=== PATIENT | female | born 1945 | race Caucasian/White ===

== ENCOUNTER → 2016-12-13 | Outpatient (CLI) | payer MEDICARE ==
--- NOTE | 2016-12-13 14:35 | MM ---
Reason for exam: screening (asymptomatic). Last mammogram was performed 1 year ago. History: Patient is postmenopausal. Family history of breast cancer in cousin at age 54. Cyst aspiration of the left breast. Cyst aspiration of the right breast. Took estrogen for 11 years beginning at age 50. Physical Findings: A clinical breast exam by your physician is recommended on an annual basis and results should be correlated with mammographic findings. MG 3D Screening Mammo W/Cad Bilateral CC and MLO view(s) were taken. Prior study comparison: December 09, 2015, bilateral MG 3d screening mammo w/cad. November 14, 2014, bilateral MG screening mammo w CAD. There are scattered fibroglandular densities. There is no discrete abnormality. No significant changes when compared with prior studies. ASSESSMENT: Negative, BI-RAD 1 RECOMMENDATION: Routine screening mammogram of both breasts in 1 year.
== END | disposition home or self-care (01) ==
LOC: RADMAMWWP 09:54
PROVIDERS: ATTEND Obstetrics & Gynecology
DX: Z12.31 Encounter for screening mammogram for malignant neoplasm of breast (principal)
CPT/HCPCS: 77063; G0202

== ENCOUNTER → 2017-04-18 | Outpatient (CLI) | payer MEDICARE ==
--- NOTE | 2017-04-18 16:43 | BD ---
EXAMINATION TYPE: MG DEXA axial skeleton. DATE OF EXAM: 04/18/2017 COMPARISON: NONE CLINICAL HISTORY: 71 year-old female known osteopenia Height: 63 Weight: 149.6 FRAX RISK QUESTIONS: Alcohol (3 or more units per day): no Family History (Parent hip fracture): no Glucocorticoids (More than 3mos): no (Ex: prednisone, prednisolone, methylprednisolone, dexamethasone, and hydrocortisone). History of Fracture in Adulthood: no Secondary Osteoporosis: 1. Type 1 Diabetes: no 2. Hyperthyroidism: no 3. Menopause before 45: yes 4. Malnutrition: no 5. Chronic liver disease: no Rheumatoid Arthritis: no Current Tobacco Use: no RISK FACTORS HISTORY OF: Hip Fracture (Right/Left): no Spine Fracture: no History of Wrist Fracture: no Surgery to Spine/Hip(right/left)/Wrist (right/left): no Family History of Osteoporosis: no Active: yes Diet low in dairy products/other sources of calcium: no Postmenopausal woman: hysterectomy age 30 Lost more than 2 inches in height since high school: no Frequent falls: no Poor Health: no Hyperparathyroidism: no Adrenal Insufficiency: no MEDICATIONS: amiloride, amlodipine, aspirin, zantac, vitamins Additional History: EXAM MEASUREMENTS: Bone mineral densitometry was performed using the [employer] System. Bone mineral density as measured about the Lumbar spine is: ----- L1-L4(G/cm2): 0.900 T Score Values are as follows: ----- L2: -2.6 ----- L3: -2.6 ----- L4: -2.2 ----- L1-L4: -2.3 Bone mineral density has: decreased -3.5 % since study of 01.06.2015 Bone mineral density about the R hip (g/cm2): 0.794 Bone mineral density about the L hip (g/cm2): 0.805 T Score values are as follows: -----R Neck: -1.8 -----L Neck: -1.7 -----R Total: -1.6 -----L Total: -1.6 Bone mineral density has: decreased -1.0 % since study of: 01.06.2015 IMPRESSION: Osteoporosis (T Score less than -2.5) as noted by T Score values averaged between the L2 and L3 verte bra. There is increased fracture risk and therapy is usually indicated based on age. Re-Screen 1-2 years. NOTE: T-SCORE=SD OF THE YOUNG ADULT MEAN.
== END | disposition home or self-care (01) ==
LOC: RADBDWWP 09:19
PROVIDERS: ATTEND Obstetrics & Gynecology
DX: M81.0 Age-related osteoporosis without current pathological fracture (principal)
CPT/HCPCS: 77080

== ENCOUNTER → 2017-12-28 | Outpatient (CLI) | payer MEDICARE ==
--- NOTE | 2018-01-01 08:35 | MM ---
Reason for exam: screening (asymptomatic). Last mammogram was performed 1 year ago. History: Patient is postmenopausal. Family history of breast cancer in cousin at age 54. Cyst aspiration of the left breast. Cyst aspiration of the right breast. Took estrogen for 11 years beginning at age 50. Physical Findings: A clinical breast exam by your physician is recommended on an annual basis and results should be correlated with mammographic findings. MG 3D Screening Mammo W/Cad Bilateral CC and MLO view(s) were taken. Prior study comparison: December 13, 2016, bilateral MG 3d screening mammo w/cad. December 09, 2015, bilateral MG 3d screening mammo w/cad. There are scattered fibroglandular densities. There is chronic nodularity in the left breast. No significant changes when compared with prior studies. ASSESSMENT: Benign, BI-RAD 2 RECOMMENDATION: Routine screening mammogram of both breasts in 1 year.
== END | disposition home or self-care (01) ==
LOC: RADMAMWWP 10:52
PROVIDERS: ATTEND Obstetrics & Gynecology
DX: Z12.31 Encounter for screening mammogram for malignant neoplasm of breast (principal)
CPT/HCPCS: 77063; 77067

== ENCOUNTER → 2019-01-02 | Outpatient (CLI) | payer MEDICARE ==
--- NOTE | 2019-01-03 13:54 | MM ---
Reason for exam: screening (asymptomatic). Last mammogram was performed 1 year ago. History: Patient is postmenopausal. Family history of breast cancer in cousin at age 54. Cyst aspiration of the left breast. Cyst aspiration of the right breast. Took estrogen for 11 years beginning at age 50. Physical Findings: A clinical breast exam by your physician is recommended on an annual basis and results should be correlated with mammographic findings. MG 3D Screening Mammo W/Cad Bilateral CC and MLO view(s) were taken. Prior study comparison: December 28, 2017, bilateral MG 3d screening mammo w/cad. December 13, 2016, bilateral MG 3d screening mammo w/cad. The breast tissue is heterogeneously dense. This may lower the sensitivity of mammography. Benign appearing bilateral calcifications. There is chronic nodularity in the left breast. No significant changes when compared with prior studies. ASSESSMENT: Benign, BI-RAD 2 RECOMMENDATION: Routine screening mammogram of both breasts in 1 year.
== END | disposition home or self-care (01) ==
LOC: RADMAMWWP 11:14
PROVIDERS: ATTEND Obstetrics & Gynecology
DX: Z12.31 Encounter for screening mammogram for malignant neoplasm of breast (principal)
CPT/HCPCS: 77063; 77067

== ENCOUNTER → 2020-01-13 | Outpatient (CLI) | payer MEDICARE ==
--- NOTE | 2020-01-15 08:46 | MM ---
Reason for exam: screening (asymptomatic). Last mammogram was performed 1 year ago. History: Patient is postmenopausal. Family history of breast cancer in cousin at age 54. Cyst aspiration of the left breast. Cyst aspiration of the right breast. Took estrogen for 11 years beginning at age 50. Physical Findings: A clinical breast exam by your physician is recommended on an annual basis and results should be correlated with mammographic findings. MG 3D Screening Mammo W/Cad Bilateral CC and MLO view(s) were taken. Prior study comparison: January 02, 2019, bilateral MG 3d screening mammo w/cad. December 28, 2017, bilateral MG 3d screening mammo w/cad. The breast tissue is heterogeneously dense. This may lower the sensitivity of mammography. No significant changes when compared with prior studies. ASSESSMENT: Negative, BI-RAD 1 RECOMMENDATION: Routine screening mammogram of both breasts in 1 year.
== END | disposition home or self-care (01) ==
LOC: RADMAMWWP 11:45
PROVIDERS: ATTEND Obstetrics & Gynecology
DX: Z12.31 Encounter for screening mammogram for malignant neoplasm of breast (principal)
CPT/HCPCS: 77063; 77067

== ENCOUNTER → 2020-02-13 | Outpatient (CLI) | payer MEDICARE ==
--- NOTE | 2020-02-13 15:39 | BD ---
EXAMINATION TYPE: Axial Bone Density DATE OF EXAM: 02/13/2020 COMPARISON: 04.18.2017 CLINICAL HISTORY: 74 YR OLD FEMALE......ICD-10 CODE: M81.0 OSTEOPOROSIS Height: 61.5 Weight: 145 FRAX RISK QUESTIONS: History of Fracture in Adulthood: YES 3. Menopause before 45: AT 47 RISK FACTORS HISTORY OF: HX OF FOOT FX >50 YRS OLD Postmenopausal woman: YES AT 30 HYST, AT 47 YRS OLD SYMPTOMS Take estrogen and/or progesterone medications: YES IN PAST FOR A FEW YRS, NONE NOW Hyperparathyroidism: NO Adrenal Insufficiency: NO MEDICATIONS: Additional Medications: BP MEDS, REFLUX MEDS, CALCIUM MULTIVITAMIN WITH D Additional History: HYPERTENSION, REFLUX EXAM MEASUREMENTS: Bone mineral densitometry was performed using the [employer] System. Bone mineral density as measured about the Lumbar spine is: ----- L1-L4(G/cm2): 0.935 T Score Values are as follows: ---- L1: -2.4 ----- L2: -2.3 ----- L3: -2.0 ----- L4: -1.8 ----- L1-L4: -2.0 Bone mineral density has: Increased 5.3% SINCE 04.18.2017 STUDY Bone mineral density about the R hip (g/cm2): 0.802 Bone mineral density about the L hip (g/cm2): 0.776 T Score values are as follows: -----R Neck: -2.1 -----L Neck: -1.8 -----R Total: -1.6 -----L Total: -1.8 Bone mineral density has: Decreased -2.7% SINCE 04.18.2017 STUDY FRAX%s: THERE IS A 20.1% CHANCE FOR A MAJOR OSTEOPOROTIC FX AND A 4.4% FOR HIP.....PROBABILITY FOR FX IN 10 YRS TIME IMPRESSION: Osteopenia NOTE: T-SCORE=SD OF THE YOUNG ADULT MEAN.
== END | disposition home or self-care (01) ==
LOC: RADBDWWP 13:16
PROVIDERS: ATTEND Obstetrics & Gynecology
DX: M85.80 Other specified disorders of bone density and structure, unspecified site (principal); M81.0 Age-related osteoporosis without current pathological fracture
CPT/HCPCS: 77080

== ENCOUNTER → 2021-01-26 | Outpatient (CLI) | payer MEDICARE ==
--- NOTE | 2021-01-27 12:03 | MM ---
Reason for exam: screening (asymptomatic). Last mammogram was performed 1 year ago. History: Patient is postmenopausal and has history of other cancer at age 57. Family history of breast cancer in cousin at age 54. Cyst aspiration of the left breast. Cyst aspiration of the right breast. Took estrogen for 11 years beginning at age 50. Physical Findings: A clinical breast exam by your physician is recommended on an annual basis and results should be correlated with mammographic findings. MG 3D Screening Mammo W/Cad Bilateral CC and MLO view(s) were taken. Prior study comparison: January 13, 2020, bilateral MG 3d screening mammo w/cad. January 02, 2019, bilateral MG 3d screening mammo w/cad. The breast tissue is heterogeneously dense. This may lower the sensitivity of mammography. Focal asymmetry central outer left breast zone B. This finding is changed when compared with previous exams. ASSESSMENT: Incomplete: need additional imaging evaluation, BI-RAD 0 RECOMMENDATION: Special view mammogram of the left breast. If lesion persists on supplemental views, image directed ultrasound is recommended. [facility] will attempt to contact patient to return for supplemental views and ultrasound if indicated.
== END | disposition home or self-care (01) ==
LOC: RADMAMWWP 09:55
PROVIDERS: ATTEND Obstetrics & Gynecology
DX: Z12.31 Encounter for screening mammogram for malignant neoplasm of breast (principal); Z78.0 Asymptomatic menopausal state; Z79.818 Long term (current) use of other agents affecting estrogen receptors and estrogen levels; Z85.9 Personal history of malignant neoplasm, unspecified; Z80.3 Family history of malignant neoplasm of breast
CPT/HCPCS: 77063; 77067

== ENCOUNTER → 2021-01-29 | Outpatient (CLI) | payer MEDICARE ==
--- NOTE | 2021-01-29 13:03 | MM ---
Reason for exam: additional evaluation requested from abnormal screening. Last mammogram was performed less than 1 month ago. History: Patient is postmenopausal and has history of other cancer at age 57. Family history of breast cancer in cousin at age 54. Cyst aspiration of the left breast. Cyst aspiration of the right breast. Took estrogen for 11 years beginning at age 50. Physical Findings: Nurse did not find any significant physical abnormalities on exam. MG 3D Work Up W/Cad LT Spot compression CC, spot compression MLO, and ML view(s) were taken of the left breast. Prior study comparison: January 26, 2021, bilateral MG 3d screening mammo w/cad. January 13, 2020, bilateral MG 3d screening mammo w/cad. The breast tissue is heterogeneously dense. This may lower the sensitivity of mammography. Focal asymmetry lower left breast persists althought is improved. These results were verbally communicated with the patient and result sheet given to the patient on 01/29/21. ASSESSMENT: Incomplete: need additional imaging evaluation, BI-RAD 0 RECOMMENDATION: Ultrasound of the left breast.
--- NOTE | 2021-01-29 13:04 | USB ---
Reason for exam: additional evaluation requested from abnormal screening. History: Patient is postmenopausal and has history of other cancer at age 57. Family history of breast cancer in cousin at age 54. Cyst aspiration of the left breast. Cyst aspiration of the right breast. Took estrogen for 11 years beginning at age 50. US Breast Workup Limited LT Left limited breast ultrasound including focal area of concern, retroareolar and axilla demonstrates a 0.4 x 0.3 x 0.4cm cystic lesion at 4 o'clock. These results were verbally communicated with the patient and result sheet given to the patient on 01/29/21. ASSESSMENT: Probably benign, BI-RAD 3 RECOMMENDATION: Follow-up diagnostic mammogram and ultrasound of the left breast in 6 months.
== END | disposition home or self-care (01) ==
LOC: RADMAMWWP 10:15
PROVIDERS: ATTEND Obstetrics & Gynecology
DX: R92.8 Other abnormal and inconclusive findings on diagnostic imaging of breast (principal); N60.02 Solitary cyst of left breast; Z78.0 Asymptomatic menopausal state; Z85.9 Personal history of malignant neoplasm, unspecified; Z80.3 Family history of malignant neoplasm of breast; Z79.818 Long term (current) use of other agents affecting estrogen receptors and estrogen levels
CPT/HCPCS: 77065; 76642; G0279; 77061

== ENCOUNTER → 2021-03-29 | Outpatient (CLI) | payer MEDICARE ==
--- NOTE | 2021-03-29 14:12 | ECHOS ---
STRESS ECHOCARDIOGRAM DATE OF STUDY: 03/29/2021 INDICATIONS: Chest pain. BASELINE HEART RATE: 63 BASELINE BLOOD PRESSURE: 159/104 MAXIMUM HEART RATE: 126 MAXIMUM BLOOD PRESSURE: 201/108 85% MPHR: 126 100% MPHR: 201/108 METS: 7 MAXIMUM STAGE REACHED: II TOTAL EXERCISE TIME: 5:01 CLINICAL INFORMATION: STRESS DATA: Heart rate is 63, pressure is 159/104 mmHg. Baseline EKG showed sinus mechanism. The patient exercised on the treadmill according to Tushar protocol for a total of 5 minutes and achieved 7.0 METS. Max heart rate was 126, which is about 85% of maximum predicted heart rate, and maximum blood pressure was 208/108 mmHg. Clinically the patient felt tired. The EKG did not show any significant ST or T-wave abnormalities concerning for ischemia. ANALYSIS: Echocardiogram images from parasternal long axis view, parasternal short axis view, apical 4-chamber and apical 2-chamber views were obtained as the baseline images at the peak of the heart rate as well as on recovery. The echocardiogram images showed good augmentation in the left ventricular systolic function without any wall motion abnormalities concerning for ischemia. CONCLUSION: 1. Excellent exercise tolerance. 2. Normal EKG in response to exercise. 3. Normal echocardiogram in response to exercise. MMODL / IJN: [id number] /
== END | disposition home or self-care (01) ==
LOC: RADNMMAIN 09:02
PROVIDERS: ATTEND Family Medicine
DX: R07.9 Chest pain, unspecified (principal)
CPT/HCPCS: C8930; Q9950; 93351

== ENCOUNTER → 2021-10-22 | Outpatient (CLI) | payer MEDICARE ==
--- NOTE | 2021-10-22 13:44 | MM ---
Reason for Exam: Follow-up at short interval from prior study. Last screening mammogram was performed 9 month(s) ago. Patient History: Menarche at age 13. First Full-Term at age 21. Left ovary removed at age 30. Hysterectomy at age 30. Postmenopausal. Estrogen for 11 years from age 50 until age 61. Cyst Aspiration on the Right side. Cyst Aspiration on the Left side. Maternal cousin had breast cancer, age 54. Risk Values: Alana 5 year model risk: 1.4%. NCI Lifetime model risk: 3.2%. Film Views: 3D and 2D Synthesized Left CC views were taken. 3D and 2D Synthesized Left MLO views were taken. Prior Study Comparison: 01/13/2020 Bilateral Screening Mammogram, [facility]. 01/26/2021 Bilateral Screening Mammogram, [facility]. 01/29/2021 Left Diagnostic Mammogram, [facility]. Tissue Density: Left: The breast tissue is heterogeneously dense. This may lower the sensitivity of mammography. Findings: Analyzed By CAD. Mammogram A few scattered benign-appearing round calcifications throughout the left breast are redemonstrated. . Technique: Method: Targeted. Findings: The lower outer quadrant of the left breast, the axilla of the left breast and the retroareolar of the left breast were scanned. Finding 1: Simple cyst. Laterality: Left. Size 5 x 4 x 5 mm. 4 O'clock Quadrant: Lower outer. 3 cm cm from nipple. Shape: Round or Oval. Margin: Circumscribed (Well-Defined or Sharply-Defined). Overall Assessment: Benign, BI-RAD 2 Assessment: MG 3D diag mammo w/cad LT - Left: Benign, BI-RAD 2. US breast workup limited LT - Left: Benign, BI-RAD 2. Management: Screening Mammogram of both breasts. Back on schedule. Electronically signed and approved by: Fernando Aguilar M.D.
== END | disposition home or self-care (01) ==
LOC: RADMAMWWP 12:46
PROVIDERS: ATTEND Obstetrics & Gynecology
DX: N60.02 Solitary cyst of left breast (principal); Z78.0 Asymptomatic menopausal state; Z80.3 Family history of malignant neoplasm of breast; Z90.721 Acquired absence of ovaries, unilateral
CPT/HCPCS: 77065; 76642; G0279; 77061

== ENCOUNTER → 2022-03-30 | Outpatient (CLI) | payer MEDICARE ==
--- NOTE | 2022-03-30 14:29 | BD ---
EXAMINATION TYPE: Axial Bone Density DATE OF EXAM: 03/30/2022 COMPARISON: 02/13/2020 CLINICAL HISTORY: 76 years year old Female. ICD-10 CODE: M85.88 DISORDER OF BONE DENSITY Height: 62 IN Weight: 158 LBS FRAX RISK QUESTIONS: History of Fracture in Adulthood: FOOT FX AGE 65 Secondary Osteoporosis: 3. Menopause before 45: TOTAL HYST AGE 30 RISK FACTORS HISTORY OF: Active: YES Postmenopausal woman: TOTAL HYST AGE 30 Take estrogen and/or progesterone medications: NOT NOW How lon YEAR MEDICATIONS: Additional Medications: CALCIUM, VIT D, BLOOD PRESSURE MEDS, DIURETIC, PEPCID, LOW DOSE ASPIRIN, SLEE P AID, EXAM MEASUREMENTS: Bone mineral densitometry was performed using the Porphyrio System. Bone mineral density as measured about the Lumbar spine is: ----- L1-L4(G/cm2): 0.968 T Score Values are as follows: ----- L1: -1.5 ----- L2: -1.8 ----- L3: -2.3 ----- L4: -1.6 ----- L1-L4: -1.8 Bone mineral density has: Increased 1.6% since study of: 02/13/2020 Bone mineral density about the R hip (g/cm2): 0.722 Bone mineral density about the L hip (g/cm2): 0.764 T Score values are as follows: -----R Neck: -2.3 -----L Neck: -2.0 -----R Total: -1.9 -----L Total: -1.6 Bone mineral density has: Decreased -0.4% since study of: 02/13/2020 FRAX%s: The graph provided illustrates a 21.9 chance for a major osteoporotic fx and a 5.8 chance for the hips probability for fx in 10 years time. IMPRESSION: Osteopenia (T Score between -2.5 and -1). There is slightly increased risk of fracture and the patient may be considered for treatment. Re-Screen 2-5 years. NOTE: T-SCORE=SD OF THE YOUNG ADULT MEAN.
--- NOTE | 2022-03-31 12:02 | MM ---
Reason for Exam: Screening (asymptomatic). Last mammogram was performed 1 year(s) and 3 month(s) ago. Patient History: Menarche at age 13. First Full-Term at age 21. Left ovary removed at age 30. Hysterectomy at age 30. Postmenopausal. Estrogen for 11 years from age 50 until age 61. Cyst Aspiration on the Right side. Cyst Aspiration on the Left side. Maternal cousin had breast cancer, age 54. Risk Values: Alana 5 year model risk: 1.4%. NCI Lifetime model risk: 3.2%. Prior Study Comparison: 01/26/2021 Bilateral Screening Mammogram, [facility]. 01/29/2021 Left Diagnostic Mammogram, [facility]. 10/22/2021 Left MG 3D diag mammo w/cad , [facility]. Tissue Density: The breast tissue is heterogeneously dense. This may lower the sensitivity of mammography. Findings: Analyzed By CAD. Findings appears symmetrical and stable. No significant interval change. No suspicious groups of microcalcifications, spiculated or lobular masses, architectural distortion or other secondary signs of malignancy are mammographically apparent. Overall Assessment: Benign, BI-RAD 2 Management: Screening Mammogram of both breasts in 1 year. A negative mammogram report should not preclude additional follow up of suspicious palpable abnormalities. Patient should continue monthly self breast exam. A clinical breast exam by your physician is recommended on an annual basis and results should be correlated with mammographic findings. Electronically signed and approved by: Obie Mclaughlin D.O. Radiologis
== END | disposition home or self-care (01) ==
LOC: RADMAMWWP 11:50
PROVIDERS: ATTEND Obstetrics & Gynecology
DX: Z12.31 Encounter for screening mammogram for malignant neoplasm of breast (principal); M85.89 Other specified disorders of bone density and structure, multiple sites; Z78.0 Asymptomatic menopausal state; Z80.3 Family history of malignant neoplasm of breast; Z90.721 Acquired absence of ovaries, unilateral
CPT/HCPCS: 77063; 77067; 77080

== ENCOUNTER 2022-05-03 08:54 | Day surgery (SDC) | payer MEDICARE ==
[~2022-05-03 08:54] MED LIST: LIDOCAINE 1% (10MG/ML) FOR IV START INTRADERMA PRN
[2022-05-03 09:37] VITALS: TEMP 97.4
[2022-05-03 09:44] LABS: Glucose,Whole Blood 100 mg/dL (70-110)
[2022-05-03] MEDS: LACTATED RINGERS 1,000 ML IV SCH ×2 (09:44→12:30)
[2022-05-03] MEDS ORDERED: PROPOFOL 10 MG/ML 20 ML VIAL IV ONE (10:17)
--- NOTE | 2022-05-03 10:51 | P.PCN ---
Date of Procedure: 05/03/22 Procedure(s) Performed: BRIEF HISTORY: Patient is a 76-year-old pleasant female scheduled for an elective colonoscopy as a part of screening for colon cancer. PROCEDURE PERFORMED: Colonoscopy snare polypectomy. PREOPERATIVE DIAGNOSIS: Screening for colon cancer. IV sedation per Anesthesia. PROCEDURE: After informed consent was obtained, the patient, was brought into the endoscopy unit. IV sedation was administered by Anesthesia under continuous monitoring. Digital rectal examination was normal. Initially the Olympus CF-160 flexible video colonoscope was then inserted in the rectum, gradually advanced into the mouth and advancement was not possible. The scope was removed and a pediatric colonoscopy was then inserted in the rectum and gradually advanced into the cecum with severe difficulty. Careful examination was performed as the scope was gradually being withdrawn. Ileocecal valve and the appendiceal orifice were visualized and appeared normal. Prep was excellent. Mucosa of the cecum, and a 5 mm and 7 mm polyp removed by snare polypectomy. In the descending colon there was a 5 mm polyp removed by snare polypectomy. Rest of the ascending colon, transverse colon, descending colon, sigmoid colon, and rectum appeared normal. Scattered sigmoid diverticula cyst. Retroflexion was performed in the rectum and no lesions were seen. The patient tolerated the procedure well. IMPRESSION: 5 mm and 7 mm cecal polyp status post polypectomy 5 mm descending colon polyp status post polypectomy Scattered sigmoid diverticula RECOMMENDATIONS: Findings of this examination were discussed with the patient as well as a family. She was advised to follow with the biopsy results. If the biopsies adenoma she can have a repeat colonoscopy in 5 years..
[2022-05-03 10:57] VITALS: RESP 16
[2022-05-03] MEDS ORDERED: KETOROLAC 15 MG/ML 1 ML VIAL ONE (12:31)
[2022-05-03] MEDS ORDERED: KETOROLAC 15 MG/ML 1 ML VIAL IVP ONE (12:33)
[2022-05-03 13:21] VITALS: BP 129/76; PULSE 66
== END 2022-05-03 13:17 | disposition home or self-care (01) ==
LOC: ORWHC2ENDO 08:54
PROVIDERS: ATTEND Internal Medicine Gastroenterology
DX: Z12.11 Encounter for screening for malignant neoplasm of colon (principal); D12.0 Benign neoplasm of cecum; D12.4 Benign neoplasm of descending colon; K21.9 Gastro-esophageal reflux disease without esophagitis; I10 Essential (primary) hypertension; K57.30 Diverticulosis of large intestine without perforation or abscess without bleeding; Z79.899 Other long term (current) drug therapy
CPT/HCPCS: 88305; 45385; J1885; J2704

== ENCOUNTER → 2023-04-04 | Outpatient (CLI) | payer MEDICARE ==
--- NOTE | 2023-04-04 17:48 | CT ---
EXAMINATION TYPE: CT brain wo con CT DLP: 1090.4 mGycm, Automated exposure control for dose reduction was used. DATE OF EXAM: 04/04/2023 5:38 PM COMPARISON: None. CLINICAL INDICATION:Female, 77 years old with history of R51.9 Headache, Facial and jaw pain radiatin g down neck x 1 month. TECHNIQUE: Brain: Axial CT images of the brain were obtained with coronal and sagittal reformats created and rev iewed. Contrast used: None. Oral contrast used: None. FINDINGS: Brain: Extra-axial spaces: No abnormal extra-axial fluid collections. Ventricular system: Within normal limits Cerebral parenchyma: Remote injury along the right mejia radiata/periventricular white matters. No a cute intraparenchymal hemorrhage or mass effect. The valdes-white junction is well differentiated. Cerebellum: Unremarkable. Mass effect: No evidence of midline shift. Intracranial vasculature: unremarkable Soft tissues: Normal. Calvarium/osseous structures: No depressed skull fracture. Paranasal sinuses and mastoid air cells: Mild scattered paranasal sinus disease. Visualized orbits: Orbital contents are intact. IMPRESSION: 1. No acute intracranial process. 2. Remote injury to the right mejia radiata of the frontal lobe.
--- NOTE | 2023-04-04 21:39 | CT ---
EXAMINATION TYPE: CT sinus wo con DATE OF EXAM: 04/04/2023 COMPARISON: None HISTORY: 77-year-old female R5 1.9 Facial and jaw pain radiating down neck x [address] DLP: 440.7 mGycm Automated exposure control for dose reduction was used. TECHNIQUE: Noncontrast axial views of the paranasal sinuses were obtained. Coronal and sagittal refor matted images were obtained from the axial views for evaluation of nasal cavity, osteomeatal complex and skull base integrity. FINDINGS: PARANASAL SINUSES: There is trace mucosal thickening within the anterior ethmoid air cells on both sides. Otherwise, the frontal, maxillary, and sphenoid sinuses appear well pneumatized. No air-fluid levels. Reactive ana- osteogenesis is not seen. There is no destruction of the osseous martin of the paranasal sinuses. THE NASAL CAVITY: The osteomeatal complexes are patent. The nasal septum is prominently deviated to the right. Intracranial structures described on separate CT brain report of the same day. Mastoid air cells and middle ear cavities are well pneumatized. Reformatted images confirm above findings. IMPRESSION: Only trace mucosal thickening throughout the ethmoid air cells. Prominent rightward nasal septal yanira ation. Otherwise, no significant abnormality seen.
== END | disposition home or self-care (01) ==
LOC: RADCTMAIN 17:05
PROVIDERS: ATTEND Family Medicine
DX: R51.9 Headache, unspecified (principal); J34.2 Deviated nasal septum
CPT/HCPCS: 70450; 70486

== ENCOUNTER → 2023-04-04 | Outpatient (CLI) | payer MEDICARE ==
--- NOTE | 2023-04-05 23:36 | MM ---
Reason for Exam: Screening (asymptomatic). Last screening mammogram was performed 12 month(s) ago. Patient History: Menarche at age 13. First Full-Term at age 21. Left ovary removed at age 30. Hysterectomy at age 30. Postmenopausal. Previous chest radiation therapy. Estrogen for 11 years from age 50 until age 61. Cyst Aspiration on the Right side. Cyst Aspiration on the Left side. Maternal cousin had breast cancer, age 54. Paternal cousin had breast cancer at or over age 50. Risk Values: Alana 5 year model risk: 1.4%. NCI Lifetime model risk: 3.0%. Prior Study Comparison: 01/29/2021 Left Diagnostic Mammogram, [facility]. 10/22/2021 Left MG 3D diag mammo w/cad LT, [facility]. 03/30/2022 Bilateral MG 3D screening mammo w/cad, [facility]. Tissue Density: There are scattered fibroglandular densities. Findings: Analyzed By CAD. Unchanged bilateral areas of asymmetric density. There is no suspicious group of microcalcifications or new suspicious mass in either breast. Overall Assessment: Benign, BI-RAD 2 Management: Screening Mammogram of both breasts in 1 year. . Patient should continue monthly self-breast exams. A clinical breast exam by your physician is recommended on an annual basis. This exam should not preclude additional follow-up of suspicious palpable abnormalities. Note on Alana scores and lifetime risk: 1. A Alana score greater than 3% is considered moderate risk. If this is the case, consider specialist referral to assess eligibility for a risk reducing agent. 2. If overall lifetime risk for the development of breast cancer is 20% or higher, the patient may qualify for future screening with alternating mammogram and breast MRI. Electronically signed and approved by: Ozzie Neves M.D. Radiologist
== END | disposition home or self-care (01) ==
LOC: RADMAMWWP 16:41
PROVIDERS: ATTEND Obstetrics & Gynecology
DX: Z12.31 Encounter for screening mammogram for malignant neoplasm of breast (principal); Z78.0 Asymptomatic menopausal state; Z80.3 Family history of malignant neoplasm of breast
CPT/HCPCS: 77063; 77067

== ENCOUNTER → 2023-04-24 | Outpatient (CLI) | payer MEDICARE ==
--- NOTE | 2023-04-24 11:40 | US ---
EXAMINATION TYPE: US carotid duplex BILAT DATE OF EXAM: 04/24/2023 COMPARISON: NONE CLINICAL INDICATION: Female, 77 years old with history of M54.2 CERVICALGIA; Neck and facial pain x 2 months. Hx hypertension, hyperlipidemia. TECHNIQUE: Carotid duplex ultrasound examination. Indirect Doppler criteria was utilized. FINDINGS: EXAM MEASUREMENTS: RIGHT: Peak Systolic Velocity (PSV) cm/sec ----- Right CCA: 72.5 ----- Right ICA: 77.5 ----- Right ECA: 85.0 ICA/CCA ratio: 1.07 RIGHT: End Diastole cm/sec ----- Right CCA: 17.8 ----- Right ICA: 26.8 ----- Right ECA: 17.3 LEFT: Peak Systolic Velocity (PSV) cm/sec ----- Left CCA: 82.4 ----- Left ICA: 77.2 ----- Left ECA: 82.7 ICA/CCA ratio: 0.94 LEFT: End Diastole cm/sec ----- Left CCA: 20.5 ----- Left ICA: 30.6 ----- Left ECA: 15.9 VERTEBRALS (direction of flow): Right Vertebral: Antegrade Left Vertebral: Antegrade Rhythm: Normal [employer] NOTES: No elevated velocities at this time. Intimal thickening seen bilaterally. IMPRESSION: Less than 50% stenosis of the bilateral carotid bifurcation. Criteria for Assigning % of Stenosis / Diameter reduction (Estimation based on the indirect measurements of the internal carotid artery velocities (ICA PSV). 1. Normal (no stenosis)=ICA PSV < 125 cm/s: ratio < 2.0: ICA EDV<40 cm/s. 2. Less than 50% stenosis=ICA PSV < 125 cm/s: ratio < 2.0: ICA EDV<40 cm/s. 3. 50 to 69% stenosis=ICA PSV of 125 to 230 cm/s: ration 2.0 ? 4.0: ICA EDV 40-100 cm/s. 4. Greater than 70% stenosis to near occlusion= ICA PSV > 230 cm/s: ratio > 4.0: ICA EDV > 100 cm/s. 5. Near occlusion= ICA PSV velocities may be low or undetectable: variable ratio and ICA EDV. 6. Total occlusion=unable to detect flow.
== END | disposition home or self-care (01) ==
LOC: RADUSWWP 10:49
PROVIDERS: ATTEND Family Medicine
DX: I65.23 Occlusion and stenosis of bilateral carotid arteries (principal); E78.5 Hyperlipidemia, unspecified
CPT/HCPCS: 93880

== ENCOUNTER → 2024-04-08 | Outpatient (CLI) | payer MEDICARE ==
--- NOTE | 2024-04-14 15:22 | MM ---
Reason for Exam: Screening (asymptomatic). Last screening mammogram was performed 12 month(s) ago. Patient History: Menarche at age 13. First Full-Term at age 21. Left ovary removed at age 30. Hysterectomy at age 30. Postmenopausal. Previous chest radiation therapy. Estrogen for 11 years from age 50 until age 61. Cyst Aspiration on the Right side. Cyst Aspiration on the Left side. Maternal cousin had breast cancer, age 54. Paternal cousin had breast cancer at or over age 50. Risk Values: Alana 5 year model risk: 1.4%. NCI Lifetime model risk: 2.8%. Prior Study Comparison: 10/22/2021 Left MG 3D diag mammo w/cad , [facility]. 03/30/2022 Bilateral MG 3D screening mammo w/cad, [facility]. 04/04/2023 Bilateral MG 3D screening mammo w/cad, [facility]. Tissue Density: The breasts are heterogeneously dense, which may obscure small masses. Findings: Analyzed By CAD. The pattern is symmetrical. No significant interval change No suspicious groups of microcalcifications, spiculated or lobular masses, architectural distortion or other secondary signs of malignancy are mammographically apparent. Overall Assessment: Benign, BI-RAD 2 Management: Screening Mammogram of both breasts in 1 year. A negative mammogram report should not preclude additional follow up of suspicious palpable abnormalities. Patient should continue monthly self breast exam. A clinical breast exam by your physician is recommended on an annual basis and results should be correlated with mammographic findings. Note on Alana scores and lifetime risk: 1. A Alana score greater than 3% is considered moderate risk. If this is the case, consider specialist referral to assess eligibility for a risk reducing agent. 2. If overall lifetime risk for the development of breast cancer is 20% or higher, the patient may qualify for future screening with alternating mammogram and breast MRI. [facility], , 04/14/2024 3:19 PM. Electronically signed and approved by: Obie Mclaughlin D.O. Radiologis
== END | disposition home or self-care (01) ==
LOC: RADMAMWWP 13:11
PROVIDERS: ATTEND Family Medicine
DX: Z12.31 Encounter for screening mammogram for malignant neoplasm of breast (principal); R92.333 Mammographic heterogeneous density, bilateral breasts; Z78.0 Asymptomatic menopausal state; Z80.3 Family history of malignant neoplasm of breast
CPT/HCPCS: 77063; 77067